=== PATIENT | male | born 1995 | race Caucasian/White ===

== ENCOUNTER 2019-07-26 00:23 | Inpatient (IN) | payer BC ==
[~2019-07-26] VITALS: Ht 180.3 cm; Wt 63.2 kg
--- NOTE | 2019-07-26 00:37 | NUR ---
PT TO BED 8 WITH FRIEND AT BEDSIDE.
--- NOTE | 2019-07-26 00:38 | NUR ---
PT REPORTS INGESTING 36 TYLENOL PM PILLS, SINCE APPROX [phone]. PT STS THAT HE HURT HIS BACK LIFTING 2MOS PRIOR, AND HAS HAD PAIN SINCE. PT STS THAT HE HAD SOME ALCOHOL TO DRINK, AND THAT HE WAS JUST TRYING TO GET RID OF HIS BACK PAIN. PT DENIES ANY INTENTION TO HARM SELF. PT REPORTS 500MG OF TYLENOL IN EACH PILL, AND DIPHENHYDRAMINE. PT A&O X4. PT REPORTS LIGHT-HEADEDNESS AND NAUSEA. PT REPORTS NO OTHER COMPLAINTS. PT PLACED ON BAGEL MAKER AND CONTINUOUS PULSE OX. SEIZURE PRECAUTIONS IN PLACE. WILL CONTINUE TO MONITOR.
--- NOTE | 2019-07-26 00:54 | NUR ---
SPOKE W/ DON FROM POISON CONTROL. PER DON, DRAW ALC LEVEL, TYLENOL LEVEL, ASP LEVEL, URINE DRUG SCREEN, DRAW CMP, AND LFTS. IF TYLENOLE LEVEL OR LFTS ELEVATED AT ALL, START ON MUCOMYST AND CONTINUE UNTIL LEVELS STTABILIZED. PT STS THAT IT WAS TYLENOL PM. PER DON, DIPHENHYDRAMINE CONCERNS ARE TACHYCARDIA, SEIZURES, SEDATION, AND WIDENED QRS, AND DEC URINE OUTPUT, AND OTHER ANTICHOLINERGIC EFFECTS. FOR WIDENED QRS GREATER THAN 120MIL CAN GIVE 1-2 AMPS OF BICARB. FOR TREMORS OR SEIZURES, CAN GIVE ATIVAN. EKG IS SUGGESTED Q4H. MADE AWARE.
[2019-07-26 01:11] LABS: BASOPHIL % 0.5 % (0-2); PLATELET COUNT 253 x10^3mcL (130-400); RED CELL DISTRIBUTION WIDTH 13.9 % (11.5-14.5)
[2019-07-26 01:41] LABS: ALBUMIN 4.5 g/dL (3.4-5.0); ALKALINE PHOSPHATASE 89 U/L (46-116); ALT/SGPT 27 U/L (16-63); AST/SGOT 22 U/L (15-37); BILIRUBIN TOTAL 0.39 mg/dL (0.20-1.00); CALCIUM 8.7 mg/dL (8.5-10.1); CARBON DIOXIDE 25.5 mmol/L (21-32); CHLORIDE SERUM 104 mmol/L (98-107); CREATININE SERUM 0.9 mg/dL (0.7-1.3); GFR1 > 60 mL/min; GLUCOSE SERUM 96 mg/dL (74-106); POTASSIUM SERUM 3.6 mmol/L (3.5-5.1); SODIUM SERUM 141 mmol/L (136-145); TOTAL PROTEIN, SERUM 7.6 g/dL (6.4-8.2)
[2019-07-26 02:11] LABS: UA SPECIFIC GRAVITY <=1.005 (1.005-1.035); microscopic required? YES; urine erythrocyte TRACE (NEGATIVE)
--- NOTE | 2019-07-26 02:15 | NUR ---
SPOKE TO ICU KADIE WAGONER RN. PER NURSING TELETYPEWRITER INSTALLER, AN ATTEMPT TO CONTACT AN ON-CALL RN WILL BE MADE BEFORE TRANSFERING PT TO ICU.
[2019-07-26 02:20] LABS: AMPHETAMINE QUAL UR NONE DETECTED (See below)
--- NOTE | 2019-07-26 02:27 | NUR ---
X-RAY AT BEDSIDE
--- NOTE | 2019-07-26 02:30 | NUR ---
PT AWAKE AND ALERT, TALKING TO ADMITTING RESISDENT. PT SPEAKING CLEARLY, IN FULL SENTENCESM ANSWERING QUESTIONS APPROPRIATELY. VSS, RESPS E/U. WILL CONTINUE TO MONITOR.
--- NOTE | 2019-07-26 03:01 | NUR ---
REPORT GIVEN TO DONTRELL ESPINOZA TO SSUME CARE OF PT
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
[2019-07-26 03:38] VITALS: BP 135/78
--- NOTE | 2019-07-26 04:10 | NUR ---
SPOKE TO DR. ABDULLAHI. MADE AWARE AM LABS HAVE NOT BEEN ORDERED AND OF POISION CONTROL'S RECOMMENDATIONS OF EKG Q4 AND ATIVAN PRN D/T RISK FOR SZ WITH BENADRYL OD
--- NOTE | 2019-07-26 04:30 | NUR ---
REC'D CALL FROM POISON CONTROL, EOLA, . UPDATE GIVEN ON PT INCLUDING CURRENT VITALS, ORIENTATION, AND EKG AND LAB RESULTS. RECOMMENDED MAINTENANCE DOESE OF MUCOMYST 70 MG/KG Q4H X5 DOSES, RECHECK ACETAMINOPHEN AND LFT'S AFTER 5TH DOSE, AND CONTINUE EKG Q4H SINCE PT IS TACHY. SPOKE TO DR. ABDULLAHI AND MADE AWARE.
[2019-07-26 05:22] LABS: BASOPHIL % 0.3 % (0-2); PLATELET COUNT 272 x10^3mcL (130-400); RED CELL DISTRIBUTION WIDTH 13.6 % (11.5-14.5)
--- NOTE | 2019-07-26 05:23 | NUR ---
SPOKE TO PHARMACY, [facility], REGARDING MUCOMYST ORDER BEING D/C'D. STATED HOSPITAL HAS A PROTOCOL FOR ACETAMINOPHEN OD. AM PHARMACY TO WORK ON ORDERS. ALSO STATED RESIDENT AWARE.
[2019-07-26 05:40] LABS: CALCIUM 8.7 mg/dL (8.5-10.1); CARBON DIOXIDE 24.9 mmol/L (21-32); CHLORIDE SERUM 103 mmol/L (98-107); CREATININE SERUM 0.9 mg/dL (0.7-1.3); GFR1 > 60 mL/min; GLUCOSE SERUM 103 mg/dL (74-106); MAGNESIUM 1.7 mg/dL (1.8-2.4); PHOSPHOROUS 3.5 mg/dL (2.5-4.9); SODIUM SERUM 142 mmol/L (136-145)
--- NOTE | 2019-07-26 05:44 | NUR ---
DR. ABDULLAHI MADE AWARE OF MG 1.7 VIA [facility]
--- NOTE | 2019-07-26 06:00 | NUR ---
PT FEELING NAUSEOUS AND VOMITED INTO THE TRASH CAN. MODERATE AMOUNT AND BRIGHT GREEN IN COLOR. ZOFRAN GIVEN. SHEETS CHANGED.
--- NOTE | 2019-07-26 06:52 | NUR ---
FRIENDS X2 AT THE BEDSIDE. PT REPORTS FEELING BETTER. DENIES NAUSEA AT THIS TIME. PT APPEARS TO BE MORE ALERT THIS MORNING.
--- NOTE | 2019-07-26 07:01 | NUR ---
DR. FERNÁNDEZ AT BEDSIDE TO ASSESS THE PT. MADE AWARE OF POISON CONTROL RECOMMENDATIONS WELL EKG RESULTS. QTc ARE MORE PROLONGED NOW. NO CHANGES IN ORDERS AT THIS TIME.
[2019-07-26 07:28] VITALS: BP 139/93
--- NOTE | 2019-07-26 07:47 | NUR ---
REPORT RECEIVED FROM GINGER ESPINOZA. PT RECEIVED AWAKE, ALERT, ORIENTED X 3 & ABLE TO FOLLOW COMMANDS AND COMMUNICATE NEEDS. 2 FRIENDS OF PT AT BEDSIDE. PERRL 5MM, BRISK. PT DENIES FRANCO. NO FACIAL DROOP NOTED. RESPONSES TO QUESTIONS ARE APPROPRIATE AT THIS TIME, PT APPEARS TO BE ACCURATE HISTORIAN WHEN ASKED ABOUT REASON FOR ADMISSION. LUNG SOUNDS CLEAR TO AUSCULTATION, CHEST EXPANSION SYMMETRIC. NO ACUTE DISTRESS NOTED. PT ON ROOM AIR, SATTING 100%. PT DENIES SOB. TRACHEA MIDLINE, NO JVD NOTED. CAP REFILL IMMEDIATE, EXTREMITIES ARE WARM AND DRY. IV NOTED TO RIGHT AC, PATENT, INFUSING NS @ 150 ML/HR. PT DENIES PAIN AT THIS TIME. SKIN COLOR WNL FOR ETHNICITY, CLEAN, DRY, AND INTACT. HR NOTED ON MONITOR TO BE SINUS TACHYCARDIA, FROM 110'S TO 120'S; S1 S2 PRESENT ON AUSCULTATION WITH REGULAR RHYTHM AND ELEVATED RATE. PULSES PALPABLE X4, MODERATE. PT DENIES BM & DENIES NAUSEA AT THIS TIME. PT IS CALM AND COOPERATIVE. WILL CARRY OUT ORDERS AND CONTINUE TO MONITOR PT THIS SHIFT.
--- NOTE | 2019-07-26 08:10 | NUR ---
[facility] PHARMACIST CALLED REGARDING NEXT DOSE OF MUCOMYST, STATED THE PT NEEDS TO CONTINUE TO RECEIVE IT PER TYLENOL OD PROTOCOL. RN PAGED RESIDENT, AWAITING CALL BACK.
--- NOTE | 2019-07-26 08:29 | NUR ---
DR. FERNÁNDEZ CALLED BACK AT THIS TIME. STATED THAT HE CONSULTED WITH DR. DILLARD & POISON CONTROL; STATED THAT WANTED TO DRAW ANOTHER BLOOD ACETAMINOPHEN LEVEL BEFORE CONTINUING WITH ADMINISTERING MUCOMYST. PER PC, IF ACETAMINOPHEN LEVEL IS LESS THAN 35, THEN MUCOMYST IS NOT INDICATED.
[2019-07-26 08:30] VITALS: Ht 180.3 cm; Wt 63.2 kg
--- NOTE | 2019-07-26 08:40 | NUR ---
CALLED LAB REGARDING BLOOD ACETAMINOPHEN LEVEL DRAWN THIS AM AT 0445 TO ASK IF THEY HAD THE LEVEL YET. THE TECH SAID NO, BUT THAT SHE WOULD RUN IT RIGHT NOW.
--- NOTE | 2019-07-26 08:59 | NUR ---
ACETAMINOPHEN LEVEL 96.4. WILL NOTIFY THE RESIDENT.
[2019-07-26 09:06] LABS: ALBUMIN 4.7 g/dL (3.4-5.0); BILIRUBIN DIRECT 0.09 mg/dL (0.0-0.2); BILIRUBIN TOTAL 0.37 mg/dL (0.20-1.00); TOTAL PROTEIN, SERUM 7.5 g/dL (6.4-8.2)
--- NOTE | 2019-07-26 09:28 | NUR ---
DR. FERNÁNDEZ AWARE OF ACETAMINOPHEN LEVEL.
--- NOTE | 2019-07-26 10:30 | NUR ---
DR. DILLARD AND RESIDENTS AT BEDSIDE FOR ROUNDS. UPDATES PROVIDED, QUESTIONS ANSWERED. LOW MAGNESIUM LEVEL DISCUSSED, REPLACEMENT TO BE ADDED. NO OTHER CHANGES IN POC AT THIS TIME. WILL CARRY OUT NEW ORDERS THEY ARISE.
--- NOTE | 2019-07-26 10:32 | NUR ---
STEPMOM OF PT AT BEDSIDE AT THIS TIME.
[2019-07-26 11:04] VITALS: BP 139/94
--- NOTE | 2019-07-26 11:44 | NUR ---
PROMOTION SPECIALIST AT BEDSIDE TO TALK WITH PT.
--- NOTE | 2019-07-26 12:03 | NUR ---
FAMILY BACK IN ROOM AFTER SODA TESTER LEFT AT THIS TIME. PT CALM, ALERT, AWAKE. SPEECH IS APPROPRIATE.
--- NOTE | 2019-07-26 13:55 | NUR ---
PT AMBULATING AROUND UNIT WITH JOSE ANTONIO ESPINOZA. PT TOLERATING AMBULATION WELL.
--- NOTE | 2019-07-26 14:02 | NUR ---
PT RETURNED BACK TO BED AT THIS TIME AND RECONNECTED TO CONTINUOUS VITAL SIGN MONITORING EQUIPMENT. HR 102, SPO2 97% ON RA. PT DENIES SOB OR DIZZINESS, TOLERATED AMBULATION WELL. WILL CONTINUE TO MONITOR AND ASSESS.
--- NOTE | 2019-07-26 14:32 | NUR ---
PT C/O PAIN AT IV SITE. NO S/S INFILTRATION. DRESSING OVER IV CHANGED, PT REPORTS IRRITATION HAS RESOLVED. IV FLUSHES EASILY, SKIN IS FREE FROM SWELLING, REDNESS, AND OTHER S/S PHLEBITIS. WILL CONTINUE TO MONITOR SITE.
--- NOTE | 2019-07-26 15:12 | NUR ---
DR. WELDON AT BEDSIDE TO ASSESS PT. UPDATES PROVIDED, QUESTIONS ANSWERED. NO CHANGES IN POC FAR GI IS CONCERNED, BUT DR. WELDON SUGGESTED ADDING A PHYSICAL THERAPY CONSULT TO ADDRESS THE CHRONIC BACK PAIN FROM PREVIOUS INJURY A MONTH AGO. WILL CONTACT DR. FERNÁNDEZ REGARDING PT CONSULT.
[2019-07-26 15:17] VITALS: BP 127/78
--- NOTE | 2019-07-26 15:34 | NUR ---
PHYSICAL THERAPY CONSULT ADDED BY DR. FERNÁNDEZ.
[2019-07-26 17:22] LABS: ALBUMIN 3.9 g/dL (3.4-5.0); BILIRUBIN DIRECT 0.14 mg/dL (0.0-0.2); BILIRUBIN TOTAL 0.65 mg/dL (0.20-1.00); TOTAL PROTEIN, SERUM 6.6 g/dL (6.4-8.2)
--- NOTE | 2019-07-26 17:30 | NUR ---
ACETAMINOPHEN LEVEL NOW 1.8. DR. FERNÁNDEZ AWARE.
--- NOTE | 2019-07-26 18:35 | NUR ---
750 ML CLEAR LIGHT YELLOW URINE EMPTIED FROM URINAL AT BEDSIDE.
--- NOTE | 2019-07-26 19:40 | NUR ---
RECIEVED PT FROM [facility] H[facility]DER. NURSING UPDATES. POC DISCUSSED. SEE SHIFT ASSESSMENT FOR ASSESSMENT.
[2019-07-26 19:42] VITALS: BP 127/82
--- NOTE | 2019-07-26 21:00 | NUR ---
WENT FOR WALK W/ PT. PT TOLERATED WELL. 1 LAP ICU. PT STABLE AND NO S/S OF DIZZINESS OR BLURRED VISION. WILL CONT TO MONITOR.
--- NOTE | 2019-07-26 22:50 | NUR ---
REPORT CALLED AND GIVEN TO LAVERNE. NURSING UPDATES. POC DISCUSSED. PT IN TRANSPORT.
[2019-07-26 23:00] VITALS: BP 139/85
--- NOTE | 2019-07-26 23:00 | NUR ---
RECEIVED PT FROM ICU VIA WHEELCHAIR, ACCOMPANIED BY NURSE WITH ALL OF PTS BELONGINGS. PT IS A/O X4. SPEECH IS CLEAR. DENIES FRANCO. BREATHING IS EVEN AND UNLABORED ON RA. NO SIGNS OF SOB. PULSES ARE PALPABLE. NO EDEMA PRESENT. ON TELE #29 READING SR 81. SKIN INTACT. IV TO RAC PATENT, INFUSING NS @ 150ML/HR. PT IS AMBULATORY. DENIES PAIN AT THIS TIME. ORIENTED PT TO ROOM. CALL LIGHT WITHIN REACH. BED IN LOWEST POSITION. WILL CONTINUE TO MONITOR.
--- NOTE | 2019-07-27 02:15 | NUR ---
PT IS RESTING IN BED COMFORTABLY ON HIS PHONE. DENIES ANY PAIN AT THIS TIME. BREATHING IS EVEN AND UNLABORED ON RA. NO SIGNS OF RESP. DISTRESS. BED IN LOWEST POSITION. CALL LIGHT WITHIN REACH. WILL CONTINUE TO MONITOR.
--- NOTE | 2019-07-27 04:39 | NUR ---
PT SLEPT IN INTERVALS THROUGHOUT THE NIGHT AND COMPLIED WITH NURSING CARE THROUGHOUT THE SHIFT WITH NO ACUTE EVENTS OVERNIGHT. COMFORT AND SAFETY MEASURES MAINTAINED. ALL NEEDS ASSESSED AND ATTENDED TO. WILL CONTINUE TO MONITOR AND ENDORSE CARE TO DAY SHIFT NURSE.
[2019-07-27 06:24] VITALS: BP 128/81
[2019-07-27 06:53] LABS: BASOPHIL % 0.5 % (0-2); PLATELET COUNT 218 x10^3mcL (130-400); RED CELL DISTRIBUTION WIDTH 13.8 % (11.5-14.5)
[2019-07-27 07:31] LABS: CALCIUM 8.1 mg/dL (8.5-10.1); CARBON DIOXIDE 27.7 mmol/L (21-32); CHLORIDE SERUM 108 mmol/L (98-107); CREATININE SERUM 0.8 mg/dL (0.7-1.3); GFR1 > 60 mL/min; GLUCOSE SERUM 86 mg/dL (74-106); MAGNESIUM 1.8 mg/dL (1.8-2.4); PHOSPHOROUS 3.3 mg/dL (2.5-4.9); POTASSIUM SERUM 4.1 mmol/L (3.5-5.1); SODIUM SERUM 144 mmol/L (136-145)
[2019-07-27 07:41] LABS: ALBUMIN 3.8 g/dL (3.4-5.0); ALKALINE PHOSPHATASE 68 U/L (46-116); ALT/SGPT 25 U/L (16-63); AST/SGOT 20 U/L (15-37); BILIRUBIN DIRECT 0.14 mg/dL (0.0-0.2); BILIRUBIN TOTAL 0.51 mg/dL (0.20-1.00); TOTAL PROTEIN, SERUM 6.5 g/dL (6.4-8.2)
--- NOTE | 2019-07-27 07:45 | NUR ---
ENDORSED CARE TO DAY SHIFT NURSEPEPITO RN.
--- NOTE | 2019-07-27 08:00 | NUR ---
ALERT AND ORIENTED. BREATHING FREELY ON RA. DENIES ANY LIGHTHEADEDNESS OR DIZZINESS. NS INFUSING 150 CC HOUR TO RT AC. TELE # 29 NSR. VSS. CALL LIGHT WITHIN REACH. BRP. INDEPENDENT W ADL'S.
[2019-07-27 10:04] VITALS: BP 122/79
[2019-07-27 10:18] VITALS: BP 122/79
--- NOTE | 2019-07-27 10:20 | NUR ---
CONFIRMED WITH (RESIDENT) PT IS OKAY TO DISCHARGE HOME TODAY.
--- NOTE | 2019-07-27 10:42 | NUR ---
PT DC'D TO HOME. IV DC'D TELE # 29 RETURNED TO TELE STATION. PT TO CALL [facility] FOR/ F/U COLLEEN. NUMBER AND ADDRESS GIVEN. NO NEW PRESCRIPTIONS GIVEN. ALL DC INSTRUCTION S REVIEWWED WITH AND SIGNED BY PT.
== END 2019-07-27 10:50 | disposition home or self-care (01) | DRG 917 ==
LOC: ED 00:23 → IC 01:47 → DU 23:22
PROVIDERS: Emergency Medicine; ADMIT Internal Medicine
DX: T39.1X1A Poisoning by 4-Aminophenol derivatives, accidental (unintentional), initial encounter (principal); G92 Toxic encephalopathy; T45.0X1A Poisoning by antiallergic and antiemetic drugs, accidental (unintentional), initial encounter; G89.29 Other chronic pain; F10.10 Alcohol abuse, uncomplicated; Y90.9 Presence of alcohol in blood, level not specified; F41.1 Generalized anxiety disorder; M54.9 Dorsalgia, unspecified; F32.9 Major depressive disorder, single episode, unspecified; R00.0 Tachycardia, unspecified; E83.42 Hypomagnesemia; Y92.098 Other place in other non-institutional residence as the place of occurrence of the external cause
CPT/HCPCS: G0378; G0480; J0132; J2405; J3475; J7030; Q0092